=== PATIENT | female | born 1945 | race Caucasian/White ===

== ENCOUNTER → 2017-03-31 | Outpatient (CLI) | payer MEDICARE, BC | LOC: MC.RAD 14:30 | DX: Z12.31 Encounter for screening mammogram for malignant neoplasm of breast (principal); Z98.82 Breast implant status ==

== ENCOUNTER 2017-11-08 06:26 | Day surgery (SDC) | payer MEDICARE, BC ==
[2017-11-08] VITALS (11 sets, daily range): BP systolic 123–142; BP diastolic 56–78; PULSE 69–85; TEMP 98.3
[~2017-11-08] VITALS: Ht 162.7 cm; Wt 69.7 kg
[2017-11-08 07:19] LABS: HEMATOCRIT 41.6 % (37.0-47.0); HEMOGLOBIN 14.8 g/dl (12.5-16.0); MEAN CELL VOLUME 90 fl (80.0-100.0); MEAN CORPUSCULAR HEMOGLOBIN 32 pg (27.0-31.0); MEAN CORPUSCULAR HGB CONC 36 g/dl (33.0-37.0); MEAN PLATELET VOLUME 9.3 fl (7.4-10.4); PLATELET COUNT 234 K/mm3 (130-400); RED BLOOD COUNT 4.62 M/mm3 (4.10-5.30); REDCELL DISTRIBUTION WIDTH-CV 12.1 % (11.5-14.5)
[2017-11-08 07:29] LABS: PROTHROMBIN TIME 11.1 SECONDS (9.7-12.8)
[2017-11-08 07:31] LABS: CALCIUM 9.2 mg/dL (8.4-10.2); CREATININE, serum 0.61 mg/dL (0.52-1.25); POTASSIUM 3.7 mmol/L (3.4-5.0)
[2017-11-08] MEDS ORDERED: ARMOUR THYROID30 MG PO (07:44)
[2017-11-08] MEDS ORDERED: LIPITOR20 MG PO (07:45)
[2017-11-08] MEDS ORDERED: DIOVAN 160MG160 MG PO ×2 (07:45→09:46)
[2017-11-08] MEDS ORDERED: VALTREX1 GM PO (07:46)
[2017-11-08] MEDS ORDERED: SINGULAIR 110 MG/TAB PO (07:47)
[2017-11-08] MEDS ORDERED: NEURONTIN600 MG/TAB PO (07:48)
[2017-11-08] MEDS ORDERED: PREVACID 30MG30 M1 PO (07:48)
[2017-11-08] MEDS ORDERED: CYMBALTA 60MG60 MG PO (07:50)
[2017-11-08] MEDS ORDERED: MIRAPEX0.25 MG PO (07:50)
[2017-11-08] MEDS ORDERED: TYLENOL W/COD1 UDTAB PO (07:53)
[2017-11-08] MEDS ORDERED: ZANAFLEX CAPSULE2 MG PO (07:53)
[2017-11-08] MEDS ORDERED: MOBIC15 MG PO (07:54)
[2017-11-08] MEDS ORDERED: HYGROTON 2525 MG/TAB PO (07:55)
[2017-11-08] MEDS ORDERED: MULTI VITAMINS1 TAB PO (07:55)
[2017-11-08] MEDS ORDERED: VITAMIN D32000 I1 PO (07:56)
[2017-11-08] MEDS ORDERED: PROBIOTIC FORMU1 CAP PO (07:56)
[2017-11-08] MEDS ORDERED: CALCIUM 600-D 61 TAB PO (07:56)
[2017-11-08] MEDS ORDERED: MUCINEX D1 TER PO (07:57)
[2017-11-08] MEDS ORDERED: COLACE 100100 MG/CAP PO (07:57)
[2017-11-08] MEDS ORDERED: NATURAL E400 IU PO (07:58)
[2017-11-08] MEDS ORDERED: CARDIZEM CD 18180 MG PO (09:47)
== END 2017-11-08 13:00 | disposition home or self-care (01) ==
LOC: COL.CAR 06:26
PROVIDERS: Internal Medicine Cardiovascular Disease
DX: R94.39 Abnormal result of other cardiovascular function study (principal); R06.00 Dyspnea, unspecified; E78.00 Pure hypercholesterolemia, unspecified; I10 Essential (primary) hypertension; J45.909 Unspecified asthma, uncomplicated; Z88.1 Allergy status to other antibiotic agents; Z88.5 Allergy status to narcotic agent; Z88.0 Allergy status to penicillin
CPT/HCPCS: J1644; J2250; J3010; Q9967

== ENCOUNTER → 2019-07-25 | Outpatient (CLI) | payer MEDICARE, BC ==
[~2019-07-25] MED LIST: ARMOUR THYROID30 MG PO; CALCIUM 600-D 61 TAB PO; CARDIZEM CD 18180 MG PO; COLACE 100100 MG/CAP PO; CYMBALTA 60MG60 MG PO; DIOVAN 160MG160 MG PO; HYGROTON 2525 MG/TAB PO; LIPITOR20 MG PO; MIRAPEX0.25 MG PO; MOBIC15 MG PO; MUCINEX D1 TER PO; MULTI VITAMINS1 TAB PO; NATURAL E400 IU PO; NEURONTIN600 MG/TAB PO; PREVACID 30MG30 M1 PO; PROBIOTIC FORMU1 CAP PO; SINGULAIR 110 MG/TAB PO; TYLENOL W/COD1 UDTAB PO; VALTREX1 GM PO; VITAMIN D32000 I1 PO; ZANAFLEX CAPSULE2 MG PO
== END ==
LOC: MC.RAD 15:51
DX: Z12.31 Encounter for screening mammogram for malignant neoplasm of breast (principal)

== ENCOUNTER → 2021-05-16 | Outpatient (CLI) | payer MEDICARE, BC | LOC: MC.RAD 11:30 | DX: Z12.31 Encounter for screening mammogram for malignant neoplasm of breast (principal); Z98.82 Breast implant status ==

== ENCOUNTER 2022-05-05 08:01 | Day surgery (SDC) | payer MEDICARE, BC ==
[~2022-05-05] VITALS: Ht 162.6 cm; Wt 75.0 kg
[~2022-05-05 08:01] MED LIST changes: -PROBIOTIC FORMU1 CAP PO; +PROBIOTIC-MAJOR PO
[2022-05-05 08:58] VITALS: BP 100/59; PULSE 69; TEMP 98.1
[2022-05-05] MEDS ORDERED: ZEBETA10 MG PO (09:23)
[2022-05-05] MEDS ORDERED: COLACE 100100 MG/CAP PO (09:24)
[2022-05-05] MEDS ORDERED: BREO ELLIPTA 21 EACH IH (09:24)
[2022-05-05] MEDS ORDERED: IMVEXXY10 MCG VG (09:28)
[2022-05-05] MEDS ORDERED: ZETIA 10MG TAB10 MG PO (09:29)
[2022-05-05] MEDS ORDERED: XOPENEX HF0.045 MG/A IH (09:30)
[2022-05-05] MEDS ORDERED: MELATONIN5 M1 (09:31)
[2022-05-05] MEDS ORDERED: MUCUS RELIEF1200 MG PO (09:32)
[2022-05-05] MEDS ORDERED: DUO-KAPS1 CAP PO (09:33)
[2022-05-05] MEDS ORDERED: PATADAY5 ML OP (09:33)
[2022-05-05] MEDS ORDERED: MIRAPEX0.25 MG PO (09:34)
[2022-05-05] MEDS ORDERED: PREVACID 30MG30 M1 PO (09:35)
[2022-05-05] MEDS ORDERED: TYLENOL W/COD1 UDTAB PO (09:37)
[2022-05-05] MEDS ORDERED: ALDACTONE 25MG25 M1 (09:37)
[2022-05-05] MEDS ORDERED: XANAX .25M0.25 MG/TA PO (09:40)
[2022-05-05] MEDS ORDERED: ZYRTEC 10MG10 MG PO (09:41)
[2022-05-05 11:10] VITALS: BP 119/67; PULSE 66; TEMP 97.6
--- NOTE | 2022-05-05 11:10 | NUR ---
PT BACK TO BAY 2 PER CART FROM PACU. VS OBTAINED. CALL LIGHT WITHIN REACH. PT UP TO RESTROOM AND VOIDED WITHOUT DIFFICULTY. WILL CONTINUE TO MONITOR.
[2022-05-05 11:25] VITALS: BP 135/64; PULSE 61
[2022-05-05 11:40] VITALS: BP 134/77; PULSE 58
[2022-05-05 11:55] VITALS: BP 134/68; PULSE 63
[2022-05-05 12:03] VITALS: BP 117/68; PULSE 64; TEMP 97.6
--- NOTE | 2022-05-05 13:15 | NUR ---
1125 PT TOLERATING SODA WITHOUT DIFFICULTY. DENIES ANY OTHER NEEDS. 1155 PT TOLERATING PUDDING. 1215 PT UP TO RESTROOM. VOIDED WITHOUT DIFFICULTY. 1255 IV DC'D AT THIS TIME. 1300 DISCHARGE EDUCATION COMPLETED WITH PT AND HER . THEY VERBALIZED UNDERSTANDING OF HOME AND FOLLOW UP CARE. ALL QUESTIONS ANSWERED. DISCHARGE PAPERWORK GIVEN TO PT. 1315 PT OFF UNIT PER WHEELCHAIR. PT DISCHARGED TO HOME WITH PER PERSONAL VEHICLE.
== END 2022-05-05 13:15 | disposition home or self-care (01) ==
LOC: SDCO 08:01
DX: N28.89 Other specified disorders of kidney and ureter (principal); R93.422 Abnormal radiologic findings on diagnostic imaging of left kidney; R32 Unspecified urinary incontinence; I10 Essential (primary) hypertension; K21.9 Gastro-esophageal reflux disease without esophagitis; G47.33 Obstructive sleep apnea (adult) (pediatric); E03.9 Hypothyroidism, unspecified; Z87.891 Personal history of nicotine dependence
CPT/HCPCS: C1769; J0690; J1100; J1940; J2405; J2704; J3010; J7120; Q9966

== ENCOUNTER → 2023-09-22 | Outpatient (CLI) | payer MEDICARE, BC ==
[~2023-09-22] MED LIST changes: +ALDACTONE 25MG25 M1; +BREO ELLIPTA 21 EACH IH; +DUO-KAPS1 CAP PO; +IMVEXXY10 MCG VG; +MELATONIN5 M1; +MUCUS RELIEF1200 MG PO; +PATADAY5 ML OP; +XANAX .25M0.25 MG/TA PO; +XOPENEX HF0.045 MG/A IH; +ZEBETA10 MG PO; +ZETIA 10MG TAB10 MG PO; +ZYRTEC 10MG10 MG PO
== END ==
LOC: MC.RAD 14:16
DX: R92.0 Mammographic microcalcification found on diagnostic imaging of breast (principal)

== ENCOUNTER → 2024-04-12 | Outpatient (CLI) | payer MEDICARE, BC | LOC: MC.RAD 11:11 | DX: Z12.31 Encounter for screening mammogram for malignant neoplasm of breast (principal) ==